=== PATIENT | male | born 1980 | race Caucasian/White ===

== ENCOUNTER 2021-07-27 08:59 | Inpatient (IN) | payer OTHER ==
[~2021-07-27] VITALS: Ht 177.8 cm; Wt 90.8 kg
[2021-07-27] MEDS ORDERED: DILANTIN100 MG PO (09:21)
[2021-07-27] MEDS ORDERED: GEODON20 MG PO (09:22)
[2021-07-27] MEDS ORDERED: DEPAKOTE500 MG PO (09:22)
--- NOTE | 2021-07-27 13:15 | NUR ---
THIS RN IN PT ROOM TO FINISH ADMIT. THIS RN COMPLETED PTS ASSESSMENT. PT DOES HAVE A NOTED WOUND ON LEFT BUTT CHEEK- PT REPORTS THAT THIS IS A "SPIDER BITE" AND THAT "USED TO BE 5IN LARGE". WOUND DOES NOT APPEAR TO BE 5 IN- CLOSER TO LESS THAN 2IN. KATHRYN RN PLACED AN ALLEVEYN AT THE SIGHT STATING THAT THERE APPEARED TO BE SLOUGH IN THE WOUND.
--- NOTE | 2021-07-27 19:25 | NUR ---
SHIFT REPORT RECEIVED FROM RADHA URIBE. PT RESTING IN BED. SPO2 95% ON 2L NC. C.O. IN ROOM WITH PT. NO NEEDS AT THIS TIME. CALL LIGHT IN REACH.
--- NOTE | 2021-07-27 20:45 | NUR ---
ASSESMENT, VS AND I&O COMPLETED. GCS 15, A&O X4. LUNGS HAVE FINE CRACKLES IN UPPER LOBES AND DIM IN LEFT LOWER LOBE. SPO2 92% ON 2L NC. HEART TONES REGULAR. ABD SOFT, NONTENDER, BOWEL TONES ACTIVE. CMS INTACT. IV WNL, CDI, FLUSHED WELL. SCHEDULED MEDS PROVIDED. DEPUTY IN ROOM. JELLO PROVIDED TO PT AND COFFEE TO DEPUTY. I.S. AND POSITIONING EDUCATION PROVIDED. CALL LIGHT IN REACH.
--- NOTE | 2021-07-27 21:00 | NUR ---
PT CPOX WAS READING 83, SUSTAINED. CHECKED ON PT. HE STATED HE HAD BEEN COUGHING. HAD TO CHECK ON PT SEVERAL TIMES THE SATS DID NOT READILY INCREASE. NOTED PT HAD HIS OXYGEN OFF. HE PUT IT ON, STATED THAT HE HAD USED THE URINAL AND DIDN'T PUT IT BACK ON.
--- NOTE | 2021-07-27 23:00 | NUR ---
PT HAS TAKEN OFF THE SPO2 MONITOR TO USE THE RESTROOM. EDUCATION PROVIDED AND MONITOR REPLACED. PT SPO2 77% UPON RETURNING TO BED ON 2L NC. 02 RETURNS TO 92% WIHTIN A COUPLE OF MINUTES. NO OTHER NEEDS. CALL LIGHT IN REACH. DEPUTY IN ROOM.
--- NOTE | 2021-07-27 23:02 | NUR ---
PT HAD AN EPISODE OF COUGHING, DRY. PRN MED PROVIDED. ICE WATER PROVIDED. URINAL EPTIED. NO OTHER NEEDS. DEPUTY IN ROOM. CALL LIGHT IN REACH.
--- NOTE | 2021-07-28 00:12 | NUR ---
PT RESTING IN BED, WATCHING TV. SPO2 92% ON 2L NC. CALL LIGHT IN REACH.
--- NOTE | 2021-07-28 02:00 | NUR ---
ASSESSMENT, VS AND I&O COMPLETED. SPO2 94% ON 3L NC. LUNGS HAVE FINE CRACKLES IN UPPER LOBES AND DIM IN LOWER LOBES. SKIN WPD. IV WNL. NO OTHER NEEDS AT THIS TIME. DEPUTY OUTSIDE DOOR. CALL LIGHT IN REACH.
--- NOTE | 2021-07-28 03:43 | NUR ---
0215 NOTED NO WAVE FORM ON THE PULSE OX IN TO ASSESS. pt CURLED IN A BALL SHIVERING IN THE BED. BLOOD ON HIS RIGHT HAND AND SHEETS. IV CATHETER INTACT TIP FOUND ON THE FLOOR. PRESSURE APPLIED TO HAND. pt ON 4L NC, CANNULA FOUND ON HEAD, REPLACED. O2 SAT MONITOR REPLACED, SATS MID 80'S. pt PRIMARY RN INFORMED. TEMP 97.9. pt REPORTED BEING COLD. WRAPPED IN WARM BLANKETS ENCOURAGED TO LAY ON SIDE. UNABLE TO PRONE DUE TO RESTRAINTS ON ALL FOUR EXTREMITIES. REASSESSED MULTIPLE TIMES. O2 TITRATED TO 10L OXYMASK. ABLE TO MAINTAIN SATS OF 90% LAYING ON RIGHT SIDE. BLANKETS AND PILLOWS TO PROTECT PRESSURE POINTS. NEW IV STARTED. DEPUTY OUTSIDE DOOR.
--- NOTE | 2021-07-28 06:02 | NUR ---
VS AND I&O COMPLETED. SPO2 92% ON 10L OXYMASK. PT UP TO USE URINAL AND BACK TO BED. PT TAKES MASK OFF TO TAKE A DRINK AND QUICKLY GOES TO 84% SPO2 AND RETURNS TO LOW 90s IN A COUPLE OF MINUTES WHEN MASK BACK ON. NO OTHER NEEDS. CALL LIGHT IN REACH.
--- NOTE | 2021-07-28 06:29 | NUR ---
PT SPO2 IN LOW 80s. PT REPOSITIONED, FINGER MONITOR CHECKED AND SECURED. OXYMASK @ 10L, MOVED TO 12L. RR 32 AND MORE LABORED. SONYA RT IN TO ASSESS AND ADJUST NEEDED.
--- NOTE | 2021-07-28 06:32 | NUR ---
PHONE CALL TO MD ABOUT INCREASED O2 NEEDS AND WORK OF BREATHING. MD GAVE VERBAL ORDERS FOR THE PT TO BE PUT ON CPAP, IF PT DOES NOT TOLERATE CPAP TO USE VAPOTHERM. MD ALSO ORDERED A CHEST CT TO RULE OUT BLOOD CLOTS. ORDERS REPEATED BACK. RT AND IMAGING NOTIFIED.
--- NOTE | 2021-07-28 07:30 | NUR ---
REPORT RECEIVED FROM JOJO CHENG. PT RESTING ON RIGHT SIDE WITH NRB IN PLACE AT 15L. OXGYEN SAUTRAITONS OF 96%. PT REPORTS 5/[address] WITH COUGH[address] TECHNITIAN CALLED AND STATES THEY WILL FUSELAGE FRAMER PT BY WHEELCHAIR SHORTLY. PT UPDATED ON PLAN OF CARE AND VERBALIZES UNDERSTANDING OF PLAN OF CARE. NO ADDITIONAL REQUESTS OR COMPLAINTS. CALL LIGHT WIHTIN REACH. BED RAILS UP. OFFICERS AT BEDSIDE.
--- NOTE | 2021-07-28 07:51 | NUR ---
CALLED HOUSING CASE MANAGER AT [facility], TO UPDATE ON PT CONDITION. ALL QUESTIONS ANSWERED. RN REQUESTS A CALL EVERY AFTER TO UPDATE ON PT CONDITION.
--- NOTE | 2021-07-28 08:15 | NUR ---
MEDICATIONS DUE. GIVEN ORDERED. OXGYEN SATURATIONS REMAIN ABOVE 90% ON 15L O2 BY NRB AT THIS TIME. MEDICATIONS GIVEN. PT CONTINUES TO REPORTS 5/10 CHEST PAIN WITH COUGH. TYELNOL AND COUGH MEDICAITON GIVEN. PT TRANSFERS SELF TO WHEELCHAIR WITH STAND BY ASSIST. PT TO CT WITH CT TECHNITIAN AND OFFICER.
--- NOTE | 2021-07-28 09:01 | NUR ---
PT RETURNED FROM CT. CT TECHNITIAN STATES PT WAS MOVING TOO MUCH DURING THE SCAN AND SCAN WILL HAVE TO BE REPEATED. CT TECHNITIAN ALSO STATES THEY NEED A NEW 20G IV TO DO SCAN. IV TO LEFT HAND FLUSHES WELL, NO S/S OF PHELBITIS AND BRISK BLOOD RETURN IS NOTED. CT TECHNITIAN STATES PT WAS REPORTING BURNING AT IV SITE DURING SCAN. PT DENIES BURNING NOW, NONE THE LESS, NEW IV IS STARTED IN RIGHT AC PER PROTOCOL. BRISK BLOOD RETURN NOTED. PT CONTINUES TO REPORT 5/10 CHEST PAIN "FROM COUGHING." TYLENOL PREVIOUSLY GIVEN, PT REPORTS NO IMPROVEMENT IN COUGH SO FAR. LUNG SOUNDS COURSE IN LOWER LOBES, FINE CRACKELS NOTED IN UPPER LOBES. PT REMAINS ABOVE 94% ON 15L O2 BY OXY MASK. RT AWARE OF CPAP ORDER. AWAITING SET UP BY RT. PT DEMONSTRATES USE OF I.S. REACHING 1250ML X3. PT DESATURATES TO 80% WITHOUT NRB IN PLACE. ALLEVYN IN PLACE OVER LEFT BUTTOCKS WOUND, C/D/I, WOUND NOT VISUALIZED AT THIS TIME. DISEASE PROCESS AND PRONING EDUCATION DONE WITH PT. PT DECLINES PRONING STATING "NO FUCKING WAY." PT REMAINS ON BACK WITH HEAD OF BED ELEVATED TO 25 DEGREES. OFFICER AT BEDSIDE. CALL LIGHT WITHIN REACH. BED RAILS UP.
--- NOTE | 2021-07-28 09:45 | NUR ---
Pt gone for testing, will return later.
[2021-07-28] MEDS ORDERED: DOXYCYCLINE MO100 MG PO (09:46)
[2021-07-28] MEDS ORDERED: ZYRTEC10 MG PO (09:48)
[2021-07-28] MEDS ORDERED: TYLENOL EXTRA500 MG PO (09:49)
[2021-07-28] MEDS ORDERED: IBU-200200 MG PO (09:49)
[2021-07-28] MEDS ORDERED: MECLIZINE HCL25 M1 PO (09:50)
--- NOTE | 2021-07-28 09:56 | NUR ---
PT RETUNRED FROM 2ND CT. IV INFUSION COMPLETE, IV FLUSHED AND SALINE LOCKED PER PROTOCOL. PT AGREES TO LYE ON RIGHT SIDE, ASSISTED WITH POSITIONING, SUPPORTED WITH PILLOWS. OXGYEN SATURATION NOTED TO BED 100% ON 15L NRB. PT WEANED TO 8L O2 BY NRB. PT REPORTS CHEST PAIN WITH COUGH HAS IMPROVED, NOW /. PT DENIES ADDIITONAL REQUESTS OR COMPLAINTS. RESTING WITH EYES CLOSED. MILD SNORNING NOTED. CALL LIGHT WITHIN REACH. BED RAILS UP. OFFICER AT BEDSIDE.
--- NOTE | 2021-07-28 10:02 | NUR ---
MED REC COMPLETE
--- NOTE | 2021-07-28 11:07 | NUR ---
THIS RN TO ROOM TO CHECK ON PT. PT CONTINUES RESTING ON RIGHT SIDE. OXGYEN SATURATIONS 94% AND ABOVE ON 8L O2 BY NRB. MD CONSULTED REGARDING OXYGEN NEEDS. VERBAL ORDERS TO PLACE PT ON VAPOTHERM. VAPOTHERM SET UP BY RENETTA MCCOY. PT PLACED ON VAPOTHERM WITH SETTINGS OF 20LPM AND 60% FIO2 TO MAINTAIN OXYGEN SATURATIONS ABOVE 90%. PT ENCOURAGED TO PRONE, PT AGREES. PT ASSISED TO PRONE POSION, SUPPORTED WITH PILLOWS. OXGYEN SATURATIONS CLIMBE FROM 91% TO 96% ON SAME VAPOTHERM SETTINGS. BED RAILS UP. OFFICER AT BEDSIDE. CALL LIGHT WITHIN REACH.
--- NOTE | 2021-07-28 14:13 | NUR ---
AFTERNOON ASSESSMENT DUE. PT SITTING UP IN BED. PT HAS REMOVED VAPOTHERM AND DROPED TO 79% ON ROOM AIR. PT ENCOURAGED TO PLACE VAPOTHERM BACK IN PLACE. EDUCATION DONE. PT DEMONSTRATES UNDERSTANDING AND REPLACES VAPOTHERM TO NOSE. OXGYEN CLIMBS TO 89% AFTER 10 MINUTES. PT HAS DIFFICULTY MAINTINING ABOVE 90%. I.S. USE DEMONSTRATED. PT REACHES 2000ML X5. OXGYEN SATURATIONS DROP BACK TO 89%. VAPOTHERM SETTINGS INCREASED TO 25LPM AND 65% FIO2 TO MAINTAIN OXGYEN SATURATIONS ABOVE 90%. LUNG SOUNDS CONTINUE TO BE COURSE IN LOWER LOBES WITH CRACKELS ALSO NOTED IN UPPER LOBES. PT ENCOURAGED TO PRONE. PT AGREES AND POSITIONS SELF INTO PRONE POSITION. PT POINTS OUT RED SPOTS OVER SKIN STATING "THAT IS CELLULITIS, I GOT SHOTS IN MY BUTT FOR IT." PT DENIES PAIN OR ITCHING OF RED SPOTS. PT DENIES NAUSEA, DIARRHEA OR LOSS OF TASTE OR SMELL. NO ADDITIONAL REQUESTS OR COMPLAINTS. CALL LIGHT WITHIN REACH. BED RAILS UP.
--- NOTE | 2021-07-28 15:12 | NUR ---
THIS RN TO ROOM TO CHECK ON PT. PT REPORTS HE IS "HAVING TROUBLE WITH THE STUFF." PT HAS REMOVED VAPOTHERM AGAIN. VAPOTHERM REPLACED, OXGYEN SATURATIONS CLIMBS TO 94% ON 25LPM AND 65% FIO2. PT LYING ON RIGHT SIDE. DINNER ORDER PLACED FOR PT. PT DENIES ADDITIONAL REQUESTS OR COMPLAINTS. CALL LIGHT WIHTIN REACH. BED RAILS UP.
--- NOTE | 2021-07-28 16:01 | NUR ---
THIS RN TO ROOM TO CHECK ON PT. PT FREQUENTLY REMOVING VAPOTHERM. STATES "I JUST CAN'T MOVE WITH THIS." VAPOTHERM TAKEN OFF AND PT PLACED ON 15L O2 BY HIGH FLOW NC, TO MAINTAIN OXYGEN SATUATIONS ABOVE 90%. EDUCATION DONE WIHT PT. PT VERBALIZES UNDERSTANDING AND STATES HE WILL LEAVE OXYGEN IN PLACE. NO ADDITIONAL REQUESTS OR COMPLAINTS. CALL LIGHT WITHIN REACH. BED RAILS UP.
--- NOTE | 2021-07-28 16:48 | NUR ---
IN TO CHECK ON PT. PT UP WALKING AROUND IN ROOM LOOKING THROUGH PERSONAL BELONGINGS. TELE ASSESSED FOR PLACEMENT. TELE MAINTAINGING NORMAL FUNCTION ATT THIS TIME. PT ENCOURAGED TO GET BACK IN BED TO RESERVE OXYGEN AND PRESERVE LUNG FUNCTION. O2 89, PT REPOSITIONED TO LEFT SIDE O2 INCREASED TO 89-91% ON 15L NC. PT ON PHONE WITH ATHLETIC MONITOR AT THIS TIME. PT ABLE TO DO IS 5X 2000. MORE ICE WATER GIVEN PER PT REQUEST. PT DENIES PAIN AT THIS TIME. NO OTHER CONCERNS OR REQUESTS AT THIS TIME. BED RAILS UP, CALL LIGHT IN REACH.
--- NOTE | 2021-07-28 17:16 | NUR ---
Pt was released from [facility] today. Plans on dc to home in [place] on dc. Emergency contact is his sister Vanna [phone]. He is on 15 L 02 today. Reviewed 02 qualifer and assistance with 02. He would like to use DME. Pt states he is a heavy drinker and went through [facility] when he went to [facility]. He agrees to see speak with [facility]. Called [facility] and requested they contact pt as they cannot visit with his +covid status. Pt denies other needs. Plans on going home when discharged to [place].
--- NOTE | 2021-07-28 17:45 | NUR ---
THIS RN TO ROOM TO CHECK ON PT. PT UP TO RESTROOM. PT REPORTS LARGE FORMED BOWEL MOVEMENT. OXGEN SATURATION REMAINS 90-94% ON 15L O2 BY HIGH FLOW NC. PT DENIES PAIN AND NAUSEA. COUGH UNDER CONTROL. PT DENIES NAUSEA. WAS ABLE TO EAT 2 DINNERS 100% OF BOTH. PT DENIES ADDITIONAL REQUESTS OR COMPLAINTS. CALL LIGHT WITHIN REACH. BED RAILS UP.
--- NOTE | 2021-07-28 18:41 | NUR ---
PT HERE FOR COVID RELATED PNEUMONIA. PT INDEPENDANT IN ROOM, STEADY ON FEET WHEN OUT OF BED. PT TOELRATING REGULAR DIET WITH GOOD APPITITE. PT SHORT OF BREATH AND HAVING TROUBLE WITH OXYGENATION LAST SHIFT. PLACED ON VAPOTHERM THIS SHIFT AFTER CT SCAN WITH GOOD EFFECT. PT HAD TROUBLE KEEPING VAPOT THERM IN PLACE AND WANTED TO MOVE AROUND THE ROOM MORE AND WAS THEREFORE WEANED TO 15L O2 BY HIGH FLOW HUMIDIFIED NC, MAINTAINING OXYGEN SATURATIONS ABOVE 90% SO FAR THIS SHIFT. MEDICATIONS GIVEN. CPOX IN PLACE. PT DENIES PAIN AND NASUEA THIS SHIFT. LARGE BM NOTED THIS SHIFT. PT NO LONGER IN CUSTODY, OFFICERS NO LONGER AT BEDSIDE. PT VOIDING QUANTITY SUFFICIENT. PT USES CALL LIGHT AND MAKES NEEDS KNOWN.
--- NOTE | 2021-07-28 19:18 | NUR ---
PULSE OXEMETRY READING 65-70%. THIS RN TO ROOM. PT SHOUTING "I CAN'T BREATH." OXGYEN NOTED TO BE PULLED FROM WALL. HIGH FLOW NC AT 15L REPLACED TO WALL AND TO PTS FACE. NON REBREATHER AT 15L PLACED OVER NC. PT RECOVERS AFTER 2 MINUTS TO OXGYEN SATURATIONS ABOVE 90%. PT CALMS AND STATES HE BECAME "OVEREXCITED" WATCHING TV AND TOOK OXYGEN OFF HIS FACE AND PULLED IT OFF THE WALL. COUGH MEDICATION GIVEN TO HELP CALM COUGHING. NON REBREATHER AND HIGH FLOW NC REMOVED AND PT PLACE ON VAPOTHERM AT 35LPM AND 75% FIO2. OXGYEN SATURATIONS RISE AND STAY AT 91-93%. PT CALM AND RESTING IN BED. BED RAILS UP. CALL LIGHT WITHIN REACH. REPORT GIVEN TO JOJO CHENG WHO IS ASSUMING CARE OF PT.
--- NOTE | 2021-07-28 19:30 | NUR ---
SHIFT REPORT RECEIVED FROM RUSSELL URIBE. PT VERY RESTLESS, SHAKING. SPO2 90% ON VAPOTHERM 35/75. CALL LIGHT IN REACH.
--- NOTE | 2021-07-28 19:42 | NUR ---
PT VERY AGITATED IN BED. TREMORS SEEN. PT REPORTS "FEELING CRAWLING THINGS ON ME." PT CONFIRMS HEADACHE AND NAUSEA. CIWA SCORE PERFORMED = 15. PT REPORTED TO HAVE PREVIOUSLY DETOXED WHILE IN [facility]. DR. WISEMAN CALLED AND UPDATEDON PT STATUS. DR. WISEMAN STATES TO GIVE GEODON NOW AND ORDERS FOR CIWA WILL BE ENTERED BY HIM. SKYLAR, PTS SHREDDER/GRANULATOR OPERATOR RN, UPDATED AND WILL ADMISTER MEDICATIONS.
--- NOTE | 2021-07-28 19:50 | NUR ---
HILTON GIVEN NOW PER MD ORDER. PT STATES "GIVE ME ALL THE DRUGS THAT YOU CAN." EDUCATION PROVIDED. EDUCATION PROVIDED. NO OTHER NEEDS, CALL LIGHT IN REACH.
--- NOTE | 2021-07-28 20:00 | NUR ---
COFFEE PROVIDED TO PT, NO FURTHER NEEDS
--- NOTE | 2021-07-28 20:18 | NUR ---
PT ANXIOUS, TALKING FAST AND LOUD, FIDGETING, RUBBING HIS ARMS AND HEAD VIGOROUSLY. PRN MED PROVIDED. NO OTHER NEEDS. CALL LIGHT IN REACH.
--- NOTE | 2021-07-28 21:00 | NUR ---
ASSESSMENT, VS AND I&O COMPETED. PT BACK TO BED FROM BSC, WEAKNESS NOTED, 1PA. DYSPNEA WITH ACTIVITY, LUNGS HAVE FINE CRACKLES IN UPPER LOBES AND CRACKLES IN LOWER LOBES. GCS 15, A&O X4. I.S., O2, SAFETY, IV AND ACTIVITY EDUCATION PROVIDED, PT VERBALIZES UNDERSTANDING. IVs WRAPPED WITH COBAN, CDI, FLUSHED WELL. SCHEDULED MEDS PROVIDED. PRN COUGH MED PROVIDED. CMS INTACT. ABD SOFT, NONTENDER, BOWEL TONES ACTIVE. ICE WATER PROVIDED. NO OTHER NEEDS. CALL LIGHT IN REACH.
--- NOTE | 2021-07-29 | NUR ---
PT RESTING IN BED. VAPOTHERM @ 35/75%. SPO2 95%. CALL LIGHT IN REACH.
--- NOTE | 2021-07-29 02:30 | NUR ---
PT SPO2 AT 88%. PT REPOSITIONED, PROBE CHECKED, I.S. USED WITHOUT CHANGE. VAPOTHERM TURNED UP TO 35/85%, SPO2 AT 92%. ASSESSMENT COMPLETED. LUNGS HAVE FINE CRACKLES IN UPPER LOBES AND CRACKLES IN LOWER LOBES. HEART TONES REGULAR. PT POSITIONED ON HIS SIDE. PT IS MUCH MORE CALM, DENIES PAIN, NO TREMORS NOTED. SNACKS PROVIDED. NO OTHER NEEDS. CALL LIGHT IN REACH.
--- NOTE | 2021-07-29 06:25 | NUR ---
NOTED THAT SPO2 MONITOR WAS OFF OF PT. ARRIVED TO PT ROOM TO FIND HIM SITTING ON TOILET COUGHING, PALE. HF NC @ 15L PROVIDED, PT ASSISTED BACK TO BED, WEAKNESS NOTED. SPO2 65%, PLACED ON VAPOTHERM 40L/80%. SPO2 SLOWLY RETURNS TO 92%, NO ADDITIONAL COUGHING. EDUCATION PROVIDED AGAIN CONCERNING SAFETY. O2 NEEDS, SPO2 MONITORING DEVICE AND BED ALARMS, BED ALARM ON. CALL LIGHT IN REACH.
--- NOTE | 2021-07-29 07:04 | NUR ---
REPORT RECEIVED FROM JOJO CHENG. PT RESTING ON BACK WITH HEAD OF BED ELEVATED TO 30 DEGREES. OXGYEN SATURATIONS 92% ON 40LPM AND 80% FIO2 WITH VAPOTHERM IN PLACE. BREAKFAST ORDER PLACED. PT DENIES REQUESTS OR COMPLAINTS AT THIS TIME. CALL LIGHT WITHIN REACH. BED RAILS UP.
--- NOTE | 2021-07-29 08:57 | NUR ---
MORNING ASSESSMENT AND MEDICATION DUE. PT REPORTS HE HAS SOILED THE BED. PT DENIES PAIN AND NAUSEA. PT ORIENTED TO ALL. PT ANXIOUS AGITATED, FIGITING IN BED ADN WANTING TO GET UP OUT OF BED AND "DO MY OWN THING. i"M A GROWN ASS MAN AND DON'T NEED TO CALL YOU." EDUCATION DONE WITH PT REGADING FALL PRECAUTIONS AND NEED TO CALL THE NURSING STAFF RELTAED TO OXYGENATION. PT VERBALIZES UNDERSTANDING BUT CONTNIUES TO STATES HE DOES NOT WANT TO CALL. LUNG SOUNDS SHOW FINE CRACKELS IN UPPER LOBES OF LUNGS WITH COURSE SOUNDS IN BASES. PT REMAINS ON VAPOTHERM AT 30LPM AND 80% FIO2 TO MAINTAIN OXGYEN SATURATIONS ABOVE 90%. PT DEMONSTRATES USE OF I.S. REACHING 1500ML X5. PT REPORTS COUGH IS IMPROVING, REQUESTS COUGH MEDICATION (SEE MAR FOR MEDICATION GIVEN). STAND BY ASSIST UP TO CHAIR. ALIVIA CARE DONE BY PT. LINENS CHANGED. PT UNSTEADY ON FEET, LOOSING BALANCE MORE THAN ONCE. ALLEVYN TO LEFT BUTTOCKS REMAINS IN PLACE, C/D/I. PT REMAINS UP TO CHAIR AT THIS TIME. CALL LIGHT WITHIN REACH.
--- NOTE | 2021-07-29 09:41 | NUR ---
PUMP ALARMING, INFUSION AND FLUSH COMPLETE. IV FLUSHED AND SALINE LOCKED PER PROTOCOL. ALCOHOL CAP APPLIED. STAND BY ASSIST UP TO VOID. OXYGEN SATURATIONS NOTED TO BE DROPPING TO 86% AT TIMES. VAPOTHERM SETTINGS CHANGED TO 35LPM, 80%FIO2. OXGYEN SATURATIONS NOW MAINTAINING ABOVE 90%. PT REMAINS UP TO CHAIR, DENIES ADDITIONAL REQUESTS OR COMPLAINTS. CALL LIGHT WIHTIN REACH. BED RAILS UP.
--- NOTE | 2021-07-29 10:15 | NUR ---
IN TO CHECK ON PT. PTSITTING UP IN SHAIR. ON ENTERING THE ROOM PT COUGHING. PT REPORTED TO THIS NURSE INDEPENDENT USE OF IS WHICH CAUSED HIM TO START COUGHING. SKIN COLOR WNL. NO DIAPORESIS NOTED. THIS NURSE ASSISTED PT BSCK TO BED. PT LYING IN PRONE POSITION. PT REMIANS ON THERMOFLOW 35LPM, 90 FiO2 80. PT MAINTIANING O2 SATURATION AT 94% AT THIS TIME. NO TOHER CONCERNS OR REQUESTS. THIS NURSE REMINDED PT TO CALL WHEN HE WANTS TO GET UP. PT VERBALIZED UNDERSTANDING. CALL LIGHT IN REACH BED RAILS X 2 UP.
--- NOTE | 2021-07-29 11:00 | NUR ---
REPORT GIVEN TO JOJO NUÑEZ, WHO IS ASSUMING CARE OF PT WITH ASSISTANCE FROM TERRI RN AND EVELYN URIBE.
--- NOTE | 2021-07-29 11:35 | NUR ---
UNABLE TO VISIT DUE TO PRECAUTIONS. WILL FOLLOW NEEDED
--- NOTE | 2021-07-29 11:57 | NUR ---
THIS RN TO ROOM TO CHECK ON PT. PT RESTING IN BED ON BACK. PT REPORTS HE WAS IN PRONE POSITION "FOR A LONG TIME." HEAD OF BED ELEVAGTED TO 30 DEGREES. OXGYEN SATURATION 92% ON VAPOTHERM WITH SETTINGS OF 35LPM AND 65% FIO2. LUNCH ORDER PLACED. PT DENIES PAIN AND NAUSEA. PT DENIES ADDITIONAL REQUESTS OR COMPLAINTS. CALL LIGHT WITHIN REACH. BED RAILS UP.
--- NOTE | 2021-07-29 12:39 | NUR ---
IN TO CHECK ON PT, PT O2 84 ON MONITOR. ON ENTERING ROOM PT SITTING UPRIGHT IN BED TALKING ON PHONE. NO DISTRESS NOTED. DENIES PIAN AND DISCOMFORT. PT REPORTS " MY SISTER BROUGHT IN A BACK PACK FOR ME AND LEFT IT AT SECURITY." PT SEEMED CONCERNED ABOUT HIS BELONGINGS. THIS NURSE REASSURED HIM THAT WE WOULD GET THEM FOR HIM. IS PERFORMED X 3 TOERATED O2 O2 INCREASED TO 91, BUT THEN DECREASED BACK TO 84 ON THERMO AT 35LPM AND 65 fiO2. THERMO INCREASED TO 40LPM AND FiO2 40 WITH PT SIDE LYING TO THE RIGHT. PT 02 INCREASED TO 90-92% PT DENIES NAUSEA AND VOMITING, REPORTS DIARHHEA X 3 DAYS. PT CURRENTLY LYING TO THE RIGHT SIDE. PT JOKING WITH THIS NURSE. PT VERBALIZING UNDERSTANDING WITH EDUCATION REGADRING REST AND ROTATING POSITIONS. PT REPORTS "AFTER THIS SHOW I WILL LAY ON MY STOMACH." BED RAILS X 2 UP. CALL LIGHT IN REACH.
--- NOTE | 2021-07-29 14:00 | NUR ---
PT CALL LIGHT ON. PT REPORTS HE HAS SOILED HIS UNDERWARE. PT CONFIRMS HE IS NOW GETTING DIARRHEA. SBA UP TO BEDSIDE COMODE. PT PERFORMS SELF ALIVIA CARE. FRESH DEPENDS IN PLACE. LINENS CHANGED. SBA BACK TO BED. PT MAINTAINS OXYGEN SATUARTIONS WITH AMBULATION ABOVE 90%. PT WEANED TO 35LPM AND 65% FIO2. PT DENIES ADDIITONAL REQUESTS OR COMPLAINTS. CALL LIGHT WIHTIN REACH. BED RAILS UP.
--- NOTE | 2021-07-29 14:16 | NUR ---
PT ALERT AND ORIENTED X 3. HERAT REGULAR RATE AND RHYTHM. ABD, SOFT NON-TENDER. bt X 4. DENIES LOSS OF TASTE AND SMELL. COUGH INTERMITTENTLY WITH USE OF IS. PT DENIES PRODUCTIVE COUGH AT THIS TIME. STRENGTH IS STRONG UPPER EXTREMITEIS WEAK BILATERAL LEGS. PT REPORTS TINGLING TO RIGHT HAND. DENIES NUMBNESS TO EXTREMEITES. PUPILS ROUND REACTIVE. PT COTINUES TO REPORT DIARHHEA X 3 DAYS. NO MASS FELT TO ABD ON PALPATION. LUNGS WITH CRACKLES THROUGHOUT, O2 95 VAPOTHERM 35LPM FiO2 65. PT WITH C/O HEART BURN, DR. WISEMAN NOTIFIED VIA MESSAGE. PT WITH C/O NAUSEA AFTER EATING LUNCH. PT LAYING IN SUPINE POSITION AT THIS TIME WITH O2 IN PLACE. PRN ZOFRAN GIVEN. TOELRATED WELL. IS PERFORMED X 3 TOELRATED 1250MLS. PT WITH INTERMITTENT NONPRODUCTIVE COUGH WITH IS USE. NO OTHER CONCERS OR REQUESTS AT THIS TIME. SIDE RAILS X 2 UP CALL LIGHT IN REACH.
--- NOTE | 2021-07-29 15:43 | NUR ---
PT CALL LIGHT ON. PT HAD LARGE INCONTINANT SOFT BOWEL MOVEMENT. PT STATES "I JUST COULDN'T MAKE IT TO THE COMODE IN TIME. COMODE WAS AT BEDSIDE. ROOM CLEANED. LINENS CHANGED. ALIVIA CARE DONE. PT DID NOT PERFORM COMPLETE SELF ALIVIA CARE. STILL HAD STOOL OVER LEGS. FRESH DEPENDS IN PLACE. STAND BY ASSIST BACK TO BED. PT POSITIONED ON LEFT SIDE, SUPPORTED WITH PILLOWS. OXGYEN SATURATIONS REMAIN ABOVE 90% ON VAPOTHERM AT 35LPM AND 65% FIO2. PT DENIES ADDITIONAL REQUESTS OR COMPLAINTS. DINNER ORDER PLACED. CALL LIGHT WITHIN REACH. BED RAILS UP.
--- NOTE | 2021-07-29 16:39 | NUR ---
IN TO CHECK ON PT. PT SLEEPING ON RIGHT SIDE WITH VAPOTHERM IN PLACE. 97% ON 35LPM AND 65 FiO2. PT STATED " I WAS SLEEPING GOOD." PT PLACED ON 15LNC HIGH OXYGEN, UP TO TAKE SHOWER. PT EDUCATED ON HIGH FLOW O2, PT IN AGREEMENT TO LEAVE ON AND NOT REMOVE. PT O2 SATURATION 92-93% ON 15LNC. PT REPORTS THAT THE NAUSEA HAS RESOLVED AT THIS TIME. LINES CHANGED. LELAND AMBROSE ASSISTING PT WITH SHOWER. PT RECIEVED PERSOANL BELONGINGS THIS AFTERNOON FROM HIS SISTER. NO SOB NOTED WHILE IN SHOWER. PT PLEASANT MAKING NEEDS KNOWN. PT STATES " I AM VERY APPRECIATIVE FOR THE HALP AND ASSISTANCE." PT O2 DROPPED INTO THE 80'S WHILE STANDING IN THE SHOWER AND WITH INCREASED ACTIVITY, QUICK TO RECOVER O2 SATURATION TO 90-95% ON 15LNC. IS COMPLETED X 5 1500-1750MLS. NON-PRODUCTIVE COUGH INTERMITTANTLY WITH IS USE. PT REPORTED CONTINUED DIARRHEA THIS AFTERNOON. NO CONCERNS OR OTHER REQUESTS AT THIS TIME. BED RAILS X 2 UP. PT EDUCATED TO LEAVE O2 ON, PT VERBALIZED UNDERSTANDING AND IN AGREEMENT TO LEAVE ON. PT SITTING AT SIDE OF BED. CALL LIGHT IN REACH. REACH.
--- NOTE | 2021-07-29 17:29 | NUR ---
No change in plan for dc.
--- NOTE | 2021-07-29 18:00 | NUR ---
PT CALL LIGHT ON. PT REPORTS HIS TELEMETRY BATTERY IS . BATTERY NEAR EMPTY. NEW BATTERY PLACED. OXGYEN SATURATION 90-96% ON 15L O2 BY HIGH FLOW NC. PT REPORTS DEMINISHED APPITITE, DECLINEING DINNER BUT REQUESTING ICE CREAM. ICE CREAM ORDERED. PT DENIES PAIN AND NAUSEA. NO ADDITIONAL REQUESTS OR COMPLAINTS. CALL LIGHT WITHIN REACH. BED RAILS UP.
--- NOTE | 2021-07-29 18:15 | NUR ---
PT HAS ON ON VAPOTHERM COMING ON SHIFT THIS AM 40LPM AND 80FiO2. PT ABLE TO MAINTAIN O2 SATURATION IN THE 90S, WEANED DOWN TO 15LNC THIS AFTERNOON. PT TOLERATING WELL. PT IN AGREEMENT TO LEAVE O2 IN PLACE. VANCO TROPH TO BE DRAWN IN THE AM. PT WITH C/O HEARTBURN THIS AFTERNOON AFTER EATING TOMATO SOUP. STEVAN SENT TO DR. SCHULTE REQUESTING SOMETHING FOR PT HEARTBURN. PT WITH C/O NAUSEA, GIVEN PRN ZOFRAN THIS AFTERNOON. PT REPORTED ZOFRAN HELPFUL NAUSEA RESOLVED. PT CONTINUES TO HAVE ADEQUATE INPUT AND OUTPUT.
--- NOTE | 2021-07-29 18:51 | NUR ---
THIS RN TO ROOM TO CHECK ON PT AND DELIVER ICE CREAM. PT RESTING ON RIGHT SIDE WITH EYES CLOSED. RESPIRATIONS EVEN AND UNALBORED. OXGYENS ATURATION 98% ON 15L O2 BY HIGH FLOW NC. PT ALLOWED TO REST. CALL LIGHT WITHIN REACH.
--- NOTE | 2021-07-29 19:20 | NUR ---
SHIFT REPORT RECEIVED FROM SAVANNAH URIBE. PT RESTING IN BED ON SITE. SPO2 96% ON 15L HF NC. CALL LIGHT IN REACH.
--- NOTE | 2021-07-29 19:45 | NUR ---
IN TO CHECK ON PT, O2 STAT DROPPED BUT RETURNED TO MID 90s BY THE TIME THIS RADIO OFFICER WENT TO THE DOOR, PT RESTING IN BED, WILL INVESTIGATE SPO2 SENSOR IF ISSUE CONTINUES
--- NOTE | 2021-07-29 21:13 | NUR ---
ASSESSMENT, VS AND I&O COMPLETED. LEFT BUTTOCKS DRESSING CHANGED, WNL, SCANT SEROUS DRAINAGE. GCS 15, A&O X4. LUNGS HAVE FINE CRACKLES IN UPPER LOBES AND CRACKLES IN LOWER LOBES. ABD SOFT, NONTENDER, BOWEL TONES ACTIVE. CMS INTACT. IVs WNL, CDI, FLUSHED WELL. SNACKS AND DRINKS PROVIDED. SCHEDULED MEDS PROVIDED. PRN COUGH MEDS PROVIDED FOR DRY, HACKING COUGH. NO OTHER NEEDS. CALL LIGHT IN REACH.
--- NOTE | 2021-07-29 22:21 | NUR ---
PT RESTING IN BED, TALKING ON PHONE. SPO2 98% ON 15L HF NC. CALL LIGHT IN REACH.
--- NOTE | 2021-07-29 23:29 | NUR ---
PT SPO2 DROPS TO 83%, PT LAYING ON LEFT SIDE. PT ENCOURAGED TO USE I.S., DECLINES. EDUCATION GIVEN CONCERNING THAT WE MAY NEED TO USE THE VAPOTHERM DURING THE NIGHT, DECLINES. EDUCATION PROVIDED CONCERNING HYPOXIA AND THE EFFECTS ON THE BODY, PT STATES "I DON'T CARE!" PT REPOSITIONS TO BACK. SPO2 RAISES TO 90% ON 15L HF NC. NO OTHER NEEDS. CALL LIGHT IN REACH.
--- NOTE | 2021-07-30 | NUR ---
PT RESTING IN BED. CPOX 92% IN 15L HF NC. CALL LIGHT IN REACH.
--- NOTE | 2021-07-30 02:00 | NUR ---
PT RESTING IN BED ON SIDE. SPO2 93 ON VAPOTHERM 30L/70%. CALL LIGHT IN REACH.
--- NOTE | 2021-07-30 04:00 | NUR ---
PT RESTING IN BED. SPO2 94% ON VAPOTHERM 30/70%. CALL LIGHT IN REACH.
--- NOTE | 2021-07-30 05:30 | NUR ---
ASSESSMENT COMPLETED. LUNGS HAVE FINE CRACKLES IN UPPER LOBES AND CLEAR IN LOWER LOBES. ATTEMPTED BLOOD DRAW WITHOUT SUCCESS. IVs STEFANIL. ELINA AMBROSE IN ROOM FOR VS AND I&O.
--- NOTE | 2021-07-30 05:40 | NUR ---
IN TO GET VITALS, COFFEE AND ICE WATER PROVIDED, ROOM CLEANED, TRASH EMPTIED, PT FIGETS WITH VAPOTHERM NC, STATES 'AH IT WORKES NOW!' NO FURTHER NEEDS AT THIS TIME
--- NOTE | 2021-07-30 06:48 | NUR ---
PT SLEPT WELL LAST NIGHT. HE WENT FROM 15L HF NC TO VAPOTHERM 30/70 PER RT. LUNGS SOUNDS WERE FINE CRACKLES IN UPPER LOBES AND CLEAR IN LOWER LOBES. VSS. UOS. IVs WNL. SPO2 HAS BEEN >92% ON VAPOTHERM.
--- NOTE | 2021-07-30 07:07 | NUR ---
REPORT RECEIVED FROM JOJO CHENG. PT RESTING IN BED ON LEFT SIDE. OXGYEN SATURATIONS 91% ON VAPOTHERM AT 30LPM AND 70% FIO2. JOJO NUÑEZ ASSUMING CARE OF PT WITH ASSISTANCE FROM THIS RN. PT ALLOWED TO REST. CALL LIGHT WITHIN REACH. BED RAILS UP.
--- NOTE | 2021-07-30 07:07 | NUR ---
IN TO CHECK ON PT. PT LAYING ON LEFT SIDE SLEEPING WITH EYES CLOSED. VAPOTHERM IN PLACE ON THIS TIME. NO CONCERNS OR REAUESTS AT THIS TIME. BED RAILS X 2 UP. CALL LIGHT IN REACH.
--- NOTE | 2021-07-30 08:20 | NUR ---
PT AWAKE IN BED. PT REFUSED THE CHAIR. PT UPSET ABOUT BEING WOKEN UP EARLY FOR BLOOD DRAW. WHITE BOARD UPDATED. PT REFUSED WARM CLOTH. PT HAD PREVIOUSLY INDEPENDENTLY USED THE BSC AND URINAL. BOTH CLEANED AND RETURNED TO THE PT. CALL LIGHT WITHIN REACH. NO FURTHER NEEDS AT THIS TIME.
--- NOTE | 2021-07-30 09:20 | NUR ---
THIS RN TO ROOM WITH SAVANNAH, RN FOR MORNING MEDICATIONS AND ASSESSMENT. PT RESTING IN BED ON BACK. PT DENIES PAIN AND NAUSEA. PT REPORTS DIARRHEA IS IMPROVING WITH ONLY ONE EPISODE LAST NIGHT. LUNG SOUNDS CLEAR IN UPPER LOBES, CRACKELS NOTED IN LOWER LOBES. PT TRANSFERED TO 15L O2 BY HIGH FLOW NC WITH OXYGEN SATURATIONS 89-92%. PT COUGHING UP OCCATIONAL YELLOW SPUTUM. PT ENCOURAGED TO LYE ON SIDE OR PRONE, PT DECLINES. PT VERY FIGITY AND RESTLESS, TELLING EXTRAVGANT STORIES FROM HOME. ASSESSMENT OTHERWISE UNCHANGED. I.S. USE DEMONSTRATED WITH PT RECHING 1750 X3. PT DECLINES ADDITIONAL USE. MEDICAITONS GIVEN BY SAVANNAH RN. PT DENIES ADDITIONAL REQUESTS OR COMPLAINTS. CALL LIGHT WIHTIN REACH. BED RAILS UP.
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
--- NOTE | 2021-07-30 10:05 | NUR ---
PUMP ALARMING, INFUSION AND FLUSH COMPLETE. IV FLUSHED AND SALINE LOCKED PERPROTOCOL. ALCOHOL CAP APPLIED. OXGYEN SATURATIONS DROPING TO 88% CONSISTANTLY. PT PLACED BACK ON VAPOTHERM AT 30LPM AND 60% FIO2 TO MAINTAIN OXGYEN SATURATIONS ABOVE 90%. PT SITTING ON EDGE OF BED TALKING ON PHONE. NO ADDITONAL REQUESTS OR COMPLAINTS. CALL LIGHT WITHIN REACH. BED RAILS UP.
--- NOTE | 2021-07-30 11:00 | NUR ---
IN TO CHECK ON PT. PT DENIES ANY CONCERNS OR OTHER NEEDS AT THIS TIMES. PT SITTING UP ON THE BED TALKING O THE PHONE, CALL LIGHT IN REACH. OXYGEN ON AT THIS TIME.
--- NOTE | 2021-07-30 11:01 | NUR ---
PTS OXGYEN SATURATION DROPPING TO 82%. PT UP IN ROOM WALKING AROUND. THIS RN TO ROOM. PT ADVISED THAT HE NEEDS TO CALL NURSING STAFF WHEN HE WOULD LIKE TO GET UP. PT VERBALIZES UNDERSTANDING. VAPOTHERM SETTINGS CHANGED TO 35LPM AND 75% FIO2 TO MAINTAIN OXYGEN SATURATIONS ABOVE 90%. PT BACK TO BED AND RESTING ON RIGHT SIDE. OXGYEN SATURATION 96% WITH NEW SETTNGS. PT DENIES ADDITIONAL REQUESTS OR COMPLAINTS. TALKING NON STOP ON PHONE. NO RESPIRATORY DISTRESS NOTED. CALL LIGHT WITHIN REACH. BED RAILS UP.
--- NOTE | 2021-07-30 11:55 | NUR ---
THIS RN TO ROOM TO CHECK ON PT. PT RESTING ON LEFT SIDE WITH EYES CLOSED. RESPIRATIONS EVEN AND UNLABORED. OXGYEN SATURATION NOTED TO BE 96-100% ON VAPOTHERM SETTINGS OF 35LPM AND 75% FIO2. PT WEANED TO 30LPM AND 65% FIO2 WITH OXGYEN SATURATIONS MAINTAINING ABOVE 90%. PT ALLOED TO REST AT THSI TIME. CALL LIGHT WITHIN REACH. BED RAILS UP.
--- NOTE | 2021-07-30 12:15 | NUR ---
IN TO CHECK ON PT. PT ASLEEP SIDELYING ON THE LEFT WITH OXYGEN IN PLACE. REGULAR HR NOTED 65. O2 96 ON VAPOTHERM AT 30LPM 65Fio2. bed rails x 2 up. call light in reach.
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
--- NOTE | 2021-07-30 13:38 | NUR ---
LUNCH ARRIVED, DELIVERED TO PT. VAPOTHERM SETTINGS INCREASED TO 75% AND 35LPM WITH ACTIVITY. PT ABLE TO GET SELF SITTING ON EDGE OF BED WITH MINIMAL EFFORT. OXGYEN SATURATIONS REMAIN ABOVE 90%. NO ADDITIONAL REQUESTS OR COMPLAINTS. CALL LIGHT WITHIN REACH. BED RAILS UP.
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
--- NOTE | 2021-07-30 14:45 | NUR ---
HALIE simon in to assit pt with shower. vapotherm stoped and high flow oxygen 15LNC applied. linen. changed. dressing to left buttock changed. pt assisted with getting dressed. pt O2 drooped into the 70s while showering, but quickly recovered and pt able to maintaint low 90s on 15LNC. pt side lying on the right. no concerns or other requests at this time. call light in reach.
--- NOTE | 2021-07-30 14:45 | NUR ---
PT BATHROOM SET UP FOR A SHOWER LATER TODAY. CALL LIGHT WITHIN REACH. NO FURTHER NEEDS AT THIS TIME.
--- NOTE | 2021-07-30 15:25 | NUR ---
in to check on pt. assessment due. pt sitting on side of bed. continues to be on vapotherm at this time. o2 saturation remians above 90% vs obtained. no sob noted. heart regular. lungs continue to have crackles present. abd remains soft and non-tender. denies nausea, vomiting diarrhea or constipation. pt reports he has "had soft loose stool, but it has gotten better." skin pink warm dry. no edema noted. pt reported "i tried to sleep, but i got woke up." in reference to recieving a prn dose of valium. pt was calm and cooperative. no s/sx of being anxious noted. dressing to left buttock C/D/I, wound bed with granulated tissue, scant serous drainage. no odor present. denies pain and discomfort. vapo therm turned up 40lpm and 80FiO2, pt saturation at 96%. Ivs flushed, no s/sx of phelibitis or infiltration noted. no further concerns or requets at this time. bed rails x 2 up. call light in reach.
--- NOTE | 2021-07-30 16:59 | NUR ---
in to check on pt, pt side lying on the left side sleeping with eyes closed. o2 95 on 15L NC. side rails x 2 up. call light in reach.
--- NOTE | 2021-07-30 17:14 | NUR ---
THIS RN TO ROOM TO CHECK ON PT. DINNER DELIVIERD. PT RESTING WITH EYES CLOSED ON LEFT SIDE. RESPIRATIONS EVEN AND UNLABORED. OXGYEN SATURATION 97% ON 15L O2 BY HIGH FLOW NC. PT ALLWOED TO REST. CALL LIGHT WITHIN REACH. BED RAILS UP.
--- NOTE | 2021-07-30 17:33 | NUR ---
PT AWAKE IN BED, READY TO EAT DINNER. CALL LIGHT WITHIN REACH. NO FURTHER NEEDS AT THIS TIME.
--- NOTE | 2021-07-30 17:50 | NUR ---
OXYGEN SATURATIONS NOTED TO DROP TO 82% ON MONITOR. THIS RN TO ROOM. PT UP TO EDGE OF BED TO URINATE AND THEN SITTING UP IN BED TO EAT. VAPOTHERM AT 35LPM AND 70%FIO2 REAPPLIED. OXGYGEN SATURATIONS TO 94%, MAINTAINING ABOVE 90%. PT DENIES PAIN AND NAUSE. NO ADDITONAL REQUESTS OR COMPLAINTS. CALL LIGHT WITHIN REACH. BED RAILS UP.
--- NOTE | 2021-07-30 19:03 | NUR ---
IN TO SEE PT, MEDICATION DUE. PT GIVEN NEW ORDER FOR PROTONIX 40 MG NOW, THEN QD AFTERWARDS. PT LAYING IN BED ONENTERING ROOM TALKING ON THE PHONE. PT EDUCATION GIVEN REGARDING PROTONIX, PT VERBALIZED UNDERSTANDING. WINDOW SHADES UP. NO OTHER CONCERS OR REQUESTS AT THIS TIME. PT UP TO USE URINAL, THEN RETURN TO LAYING POSION ON BACK. PT O2 AT 94% ON VAPO THERM 35 LPM AND 70 FiO2. CALL LIGHT IN REACH.
--- NOTE | 2021-07-30 19:45 | NUR ---
IN TO GET VITALS, TELE ROSIO REPLACED AT THIS TIME, FRESH ICE WATER GIVEN, PT REQUESTING COFFEE, WILL TRY TO PROVIDE TO PT SOON, PT IS CHATTING ON THE PHONE AT THIS TIME, NO FURTHER NEEDS
--- NOTE | 2021-07-30 22:05 | NUR ---
PATIENT HAS C/O ANXIETY AND VALIUM PO WAS GIVEN WELL MEDICATION FOR COUGH AND SLEEP. PATIENT ALSO WANTED COFFE WELL WHICH WAS GIVEN EVEN AFTER THIS NURSE TRIED TO EXPLAIN TO THE PATIENT THAT THE COFFEE COULD MAKE HIM MORE JITTERY AND NERVOUS. PATIENT INSISTS,"COFFEE RELAXES ME AND HELP ME SLEEP. PATIENT REMAINS ON 35L/70% VAPOTHERM WITH O2 SATS=97%. PATIENT TURNING HIMSELF SIDE TO SIDE IN THE BED. PATIENT WANTS TO GET ON THE PHONE WITH,"MY OLD LADY", SO THIS RN EXITED THE ROOM. PATIENT'S CALL LIGHT IS IN REACH AND PATIENT HAD NO OTHER CARE NEEDS AT THIS TIME.
--- NOTE | 2021-07-31 00:05 | NUR ---
PATIENT RESTING QUIETLY ON HIS RIGHT SIDE, EYES CLOSED, RESPIRATIONS REGULAR AND EVEN, O2 SAT=97% ON VAPOTHERM 35L/70%, AND CALL LIGHT IS IN REACH. PATIENT HAS NO CURENT CARE NEEDS AT THIS TIME.
--- NOTE | 2021-07-31 01:15 | NUR ---
THIS RN EMPTIES PATIENT'S URINAL. PATIENT RESTING QUIETLY HIGH ON HIS LEFT SIDE, EYES CLOSED, RESPIRATIONS REGULAR AND EVEN, O2 SATS=98% ON VAPOTHERM 35L/70%. PATIENT HAS NO CURRENT CARE NEEDS AT THIS TIME. CALL LIGHT IS IN REACH.
--- NOTE | 2021-07-31 02:46 | NUR ---
PATIENT'S O2 SATS JUST DROPPED TO 78%. HALIE ANTOINE CHECKED ON PATIENT AND PATIENT HAD O2 OFF. PATIENT PUT O2 BACK ON AND O2 SATS BACK TO 97% ON VAPOTHERM 35L/78%. PATIENT HAD NO OTHER CARE NEEDS NOTED AT THIS TIME. CALL LIGHT IS IN REACH.
--- NOTE | 2021-07-31 05:10 | NUR ---
PATIENT HAS REMAINED ON VAPOTHERM 35L/70% FIO2 ALL SHIFT. PATIENT WILL DROP INTO THE LOW 80'S WITH SATURATION IF HE TAKES THE VAPOTHERM OFF AND HE HAS HAD TO BE REDIRECTED TO PUT IT ON A FEW TIMES. VAPOTHERM HAS ALSO COME OFF WHILE PATIENT IS SLEEPING AND PATIENT HAD TO BE AWAKENED TO PUT IT BACK ON, WHICH JUST HAPPENED NOW. PATIENT WAS HESITANT TO TAKE HIS LOVENOX LAST NIGHT, BUT DECIDED HE WOULD LET ME ADMINISTER IT IF HE COULD HAVE HIS VALIUM FOR ANXIETY AND HIS OTHER PM AND COUGH MEDS FIRST. THIS WAS DONE AND PATIENT TOLERATED EVERYTHING WELL. PATIENT IS VOIDING QS PER URINAL AND VS HAVE BEEN STABEL OTHER THAN PATIENT'S O2 NEEDS. PATIENT IS VERY TALKATIVE AND CHILD LIKE AT TIMES AND JUST NEEDS SOME REDIRECTION AND EDUCATION AT TIMES. ALL IN ALL PATIENT SEEMS TO HAVE HAD A PRETTY GOOD NIGHT. IV'S FLUSH WELL. O2 SATS CURRENTLY AT 92% AND PATIENT HAS GONE BACK TO SLEEP. TELE BATTERY REPLACED AND CALL LIGHT IS IN REACH.
--- NOTE | 2021-07-31 06:12 | NUR ---
PATIENT'S O2 SATS DROPPED TO 83%. PATIENT HAD TAKEN HIS O2 OFF FOR SOME REASON WHILE LAB WAS DRAWING HIS BLOOD. PATIENT REDIRECTED TO PUT O2 BACK ON BY THIS RN AND HE DID. O2 SATS 93% AGAIN AT THIS TIME. CALL LIGHT IS IN REACH.
--- NOTE | 2021-07-31 07:09 | NUR ---
REPORT RECEIVED FROM JOJO PARDO. PT RESTING IN BED ON BACK WITH HEAD OF BED ELEVATED TO 20 DEGREES. RESPIRATIONS EVEN AND UNLABORED. OXGYEN SATURATION 95% ON VAPOTHERM SETTINGS OF 35LPM AND 70% FIO2. BED RAILS UP. CALL LIGHT WITHIN REACH. PT ALLOWED TO REST.
--- NOTE | 2021-07-31 08:45 | NUR ---
CATALINO, REINSURANCE CLERK, UPDATED ON PT STATUS AND REQUESTED TO GIVE MORNING MEDICATIONS AND CHECK ON PT, THIS RN IS OCCUPIED. SEE NOTE BY JOJO BAE.
--- NOTE | 2021-07-31 09:19 | NUR ---
MORNING MEDS ADMINISTERED. PT C/O "AGITATION" REQUESTS VALIUM. PT IS COOPERATIVE, QUIET, FLAT AFFECT. MED PROVIDED REQUESTED. FRESH ICE TO ROOM, DENIES OTHER REQUESTS.
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
--- NOTE | 2021-07-31 10:33 | NUR ---
DR. SCHULTE UPDATED ON PTS REQEUSTS AND STATUS. ORDERS TO WEAN PT QUICKLY AND SEE HOW PT TOLERATES WEANING OF OXGYEN. THEN TO GET PT UP TO SHOWER AND SEE IF PT CAN TOLERATE ACTIVITY. PT UPDATED. PT WEANED TO 2L O2 BY NC. WITH OXGYEN STATURATIONS MAINTAINING ABOVE 89%. PT UPDATED ON PLAN OF CARE. PT INPATIENT STATING "WELL IT NEEDS TO HAPPEN NOW, I'VE GOT TO GET OUT OF HERE." BUT PT AGREES TO PLAN OF CARE AND TO SHOWER. PT DENIES ADDIITONAL REQUESTS OR COMPLAINTS. CALL LIGHT fluIT BiosystemsIN REACH. BED RAILS UP.
--- NOTE | 2021-07-31 11:19 | NUR ---
PT UP TO SHOWER WITH VAMP STITCHER PER MD REQUEST. PT MAINTAINS OXGYEN SATUARTIONS 88-94% ON 2L O2 BY NC. TACHYCARDIA NOTED WITH HEART RATE 90-110'S. PT REPORTS "I FEEL GOOD! i"M FINE." PT SHOWERS INDEPENDANTLY. LINENS CHANGED. PT DRESSES WITHOUT ASSISTANCE, STEADY ON FEET. STAND BY ASSIST BACK TO BED. PT WEANED TO ROOM AIR. OXYGEN SATURATIONS FLUCUTATING GREATLY. PEROIDS OD 82-84% NOTED. PT PLACED BACK ON 2L O2 BY NC TO MAINTAIN OXGYEN SATURATIONS ABOVE 90%. PT DENIES ADDITIONAL REQUESTS OR COMPALINTS. CALL LIGHT [employer] MachineIN REACH. BED RAILS UP.
--- NOTE | 2021-07-31 11:36 | NUR ---
DR. SCHULTE UPDATED ON PT STATUS, SHOWER, AND OXYGEN NEEDS. VERBAL ORDERS TO QUALIFY PT FOR HOME OXYGEN. ORDERS ENTERED, RESPIRATORY THERAPY NOTIFIED.
--- NOTE | 2021-07-31 11:43 | NUR ---
RENETTA RT, TO BEDSIDE FOR HOME OXYGEN TRAIL. PT VERBALIZES UNDERSTANDING OF PLAN OF CARE AND FOLLOWS DIRECTIONS APPRPRIATLY AT THIS TIME.
--- NOTE | 2021-07-31 12:05 | NUR ---
CALL PLACED TO TANJA, PTS SISTER. NO ANSWER AT THIS TIME. PT UPDATED ON PLAN OF CARE. RESTINGIN BED, 94% ON 2L O2 BY RI. NO ADDITIONAL REQUESTS OR COMPLAINTS. CALL LIGHT BERNABE NOVA. BED RAILS UP.
--- NOTE | 2021-07-31 12:10 | NUR ---
PT STATES HE HAS CHANGED HIS MIND AND WOULD LIKE TO STAY WITH HIS GIRLFRIEND, THEA. THEA CALLED AND UPDATED ON PT STATUS, OXYGEN NEED, AND PLAN FOR POSSIBLE DISCHARGE. THEA VERBALIZES UNDERSTANDING. SNOWBLOWER MECHANIC WORKING ON HOME OXGYEN SETUP. PT DECLINES LUNCH AT THIS TIME. REMAINS AT 93% ON 2L O2 BY NC. NO ADDITIONAL REQUESTS OR COMPLAINTS. CALL LIGHT WITHIN REACH. BED RAILS UP.
[2021-07-31] MEDS ORDERED: DEXAMETHASONE6 MG PO (12:52)
--- NOTE | 2021-07-31 13:58 | NUR ---
PT READY FOR DISCHRAGE. PT REQUESTS ANXIETY MEDICATION. MEDICATON GIVEN. PT DRESSES SELF, NO ASSISTANCE NEEDED. IV'S DC'S PER PROTOCOL, GAUZE AND COBAN APPLIED. DISCHARGE INSTRUCTIONS REVIEWED WITH PT. PT IS ABLE TO REPEAT BACK INSTRUCTIONS AND VERBALIZES UNDERSTANDING OF INSTRUCTIONS, MEDICATION, HOME OXGYEN USE, AND FOLLOW UP. VITAL SIGNS STABLE. HOME OXYGEN EDUCATION DONE, PT VERBALIZES UNDERSTANDING. PT WHEELED FROM [facility] TO MEET FAMILY OUT FRONT. NO ADDITIONAL REQUESTS OR CONCERNS.
== END 2021-07-31 14:20 | disposition home or self-care (01) | DRG 177 ==
LOC: ED 08:59 → MS 09:01 → ED 12:18 → MS 12:18
PROVIDERS: ADMIT Student in an Organized Health Care Education/Training Program; ATTEND Student in an Organized Health Care Education/Training Program
PROC: 3E0333Z Introduction of Anti-inflammatory into Peripheral Vein, Percutaneous Approach (ICD-10-PCS; principal; 2021-07-28)
PROC: XW033E5 Introduction of Remdesivir Anti-infective into Peripheral Vein, Percutaneous Approach, New Technology Group 5 (ICD-10-PCS; 2021-07-28)
PROC: 8E0ZXY6 Isolation (ICD-10-PCS; 2021-07-28)
PROC: XW0DXM6 Introduction of Baricitinib into Mouth and Pharynx, External Approach, New Technology Group 6 (ICD-10-PCS; 2021-07-28)
DX: U07.1 COVID-19 (principal); J96.01 Acute respiratory failure with hypoxia; J12.82 Pneumonia due to coronavirus disease 2019; G40.909 Epilepsy, unspecified, not intractable, without status epilepticus; G47.30 Sleep apnea, unspecified; Z79.899 Other long term (current) drug therapy; R79.89 Other specified abnormal findings of blood chemistry
CPT/HCPCS: 71045; 71260; 80053; 80076; 83605; 85025; 94760; 94761; 94762; 94799; 96372; 96374; 96375; 99285-25; A9270; G0378; J1100; J1650; J2405; J7050; Q9967